=== PATIENT | female | born 1990 | race Caucasian/White ===

== ENCOUNTER 2016-10-19 20:15 | Observation (INO) | payer OTHER ==
[2016-08-02 09:05] VITALS: BP 108/68
[2016-10-19] MEDS ORDERED: IV RINGERS,LACTATED 1000ML 1,000 ML IV SCH (20:26)
[2016-10-19 20:51] LABS: BILIRUBIN,URINE NEGATIVE (NEG); GLUCOSE,URINE NEGATIVE (NEG); NITRITE,URINE NEGATIVE (NEG); PH,URINE 7.5; PROTEIN,URINE NEGATIVE (NEG-TRACE); UROBILINOGEN,URINE 0.2 mg/dL (0.2 mg/dL)
[2016-10-19 20:57] LABS: BACTERIA,URINE 0 /HPF (0-FEW); RBC,URINE 0 /HPF (0-2); SQUAMOUS EPITHELIAL CELL,UR FEW /LPF; WBC,URINE OCC /HPF (0-4)
[2016-10-19 21:00] LABS: BARBITURATES NEG (NEG); BENZODIAZEPINES NEG (NEG); CANNABINOIDS NEG (NEG); COCAINE NEG (NEG); METHADONE NEG (NEG); OPIATES NEG (NEG); PHENCYCLIDINE NEG (NEG)
[2016-10-19 21:06] LABS: ETHANOL, URINE NEG (NEG)
== END 2016-10-19 21:43 | disposition home or self-care (01) ==
LOC: 3 SO LND 20:15
PROVIDERS: ADMIT Obstetrics & Gynecology; ATTEND Obstetrics & Gynecology
DX: O42.92 Full-term premature rupture of membranes, unspecified as to length of time between rupture and onset of labor (principal); Z3A.38 38 weeks gestation of pregnancy
CPT/HCPCS: 81001; G0378; G0379; G0481

== ENCOUNTER 2016-10-22 18:46 | Observation (INO) | payer OTHER ==
[2016-08-02 09:05] VITALS: BP 108/68
[2016-10-22] MEDS ORDERED: IV RINGERS,LACTATED 1000ML 1,000 ML IV SCH (19:12)
[2016-10-22 19:23] LABS: BILIRUBIN,URINE NEGATIVE (NEG); GLUCOSE,URINE NEGATIVE (NEG); NITRITE,URINE NEGATIVE (NEG); PH,URINE 7.5; PROTEIN,URINE NEGATIVE (NEG-TRACE); UROBILINOGEN,URINE 0.2 mg/dL (0.2 mg/dL)
[2016-10-22 19:35] LABS: BACTERIA,URINE FEW /HPF (0-FEW); RBC,URINE 0 /HPF (0-2); SQUAMOUS EPITHELIAL CELL,UR FEW /LPF; WBC,URINE OCC /HPF (0-4)
== END 2016-10-22 23:30 | disposition home or self-care (01) ==
LOC: 3 SO LND 18:46
PROVIDERS: ADMIT Obstetrics & Gynecology; ATTEND Obstetrics & Gynecology
DX: O62.9 Abnormality of forces of labor, unspecified (principal); Z3A.38 38 weeks gestation of pregnancy
CPT/HCPCS: 81001; G0378; G0379

== ENCOUNTER 2016-10-25 15:39 | Observation (INO) | payer OTHER ==
[2016-08-02 09:05] VITALS: BP 108/68
== END 2016-10-25 18:35 | disposition home or self-care (01) ==
LOC: 3 SO LND 15:39
PROVIDERS: ADMIT Obstetrics & Gynecology; ATTEND Obstetrics & Gynecology
DX: O62.9 Abnormality of forces of labor, unspecified (principal); Z3A.36 36 weeks gestation of pregnancy
CPT/HCPCS: G0378; G0379

== ENCOUNTER 2016-11-01 21:45 | Inpatient (IN) | payer OTHER ==
[~2016-11-01] VITALS: Ht 154.9 cm; Wt 55.8 kg
[2016-11-01] MEDS ORDERED: HYDROXYZINE PAMOATE 25 MG CAPSULE PO ONE (23:30)
[2016-11-02] MEDS ORDERED: LIDOCAINE 1% PF 30 ML VIAL. INJ PRN (11:15)
[2016-11-02] MEDS ORDERED: 0.9 % SODIUM CHLORIDE 10 ML DISP.SYRIN. IV PRN (11:15)
[2016-11-02] MEDS ORDERED: TERBUTALINE 1 MG/ML VIAL. SQ PRN (11:15)
[2016-11-02] MEDS ORDERED: OXYTOCIN 30 UNIT/500 ML PREMIX 500 ML IV PRN ×2 (11:15)
[2016-11-02] MEDS ORDERED: IBUPROFEN 600 MG TABLET. PO PRN (11:15)
[2016-11-02] MEDS: IV RINGERS,LACTATED 1000ML 1,000 ML IV SCH ×2 (11:18→15:14)
[2016-11-02 11:42] LABS: HEMATOCRIT 34.9 % (36.0-47.0); HEMOGLOBIN 11.9 g/dL (12.0-15.5); RED BLOOD COUNT 3.85 x10^6/uL (3.50-5.40); RED CELL DISTRIBUTION WIDTH 13.3 % (11.5-14.5); WHITE BLOOD COUNT 17.1 x10^3/uL (4.0-11.0)
[2016-11-02] MEDS ORDERED: BUTORPHANOL 2 MG VIAL. IV PRN (19:00)
[2016-11-02] MEDS: FENTANYL PF 100 MCG/2 ML VIAL. IV PRN ×2 (19:08→23:18)
[2016-11-03] MEDS ORDERED: DIPHENHYDRAMINE HCL 25 MG CAPSULE PO PRN (01:45)
[2016-11-03] MEDS ORDERED: 0.9 % SODIUM CHLORIDE 10 ML DISP.SYRIN. IV PRN (01:45)
[2016-11-03] MEDS ORDERED: ACETAMINOPHEN 325 MG TABLET. PO PRN (01:45)
[2016-11-03] MEDS ORDERED: HYDROCORTISONE 1% TOPICAL OINTMENT 30GM TUBE. TP PRN (01:45)
[2016-11-03] MEDS ORDERED: HYDROCODONE/APAP 5/325MG TABLET. PO PRN (01:45)
[2016-11-03] MEDS ORDERED: MAG HYDROX/ALUMINUM HYD/SIMETH 30 ML ORAL.SUSP PO PRN (01:45)
[2016-11-03] MEDS ORDERED: ZOLPIDEM 5 MG TABLET. PO PRN (01:45)
[2016-11-03] MEDS ORDERED: OXYTOCIN 30 UNIT/500 ML PREMIX 500 ML IV PRN (01:45)
[2016-11-03] MEDS ORDERED: MAGNESIUM HYDROXIDE 2,400 MG/30 ML ORAL.SUSP. PO PRN (01:45)
[2016-11-03] MEDS ORDERED: BENZOCAINE 20% TOPICAL AEROSOL SPRAY 57GM CAN. TP PRN (01:45)
[2016-11-03] MEDS ORDERED: PHENYLEPH/MINERAL OIL/PETROLAT RECTAL OINTMENT 28GM TUBE. RC PRN (01:45)
[2016-11-03] MEDS ORDERED: SIMETHICONE 80 MG TAB.CHEW PO PRN (01:45)
[2016-11-03 05:14] VITALS: BP 117/71
[2016-11-03 06:11] VITALS: BP 108/59
[2016-11-03] MEDS ORDERED: FERROUS SULFATE 325 MG TABLET PO SCH (08:00)
[2016-11-03 09:52] VITALS: BP 110/64
[2016-11-03] MEDS ORDERED: FLU VACC QUAD 2016-17 (36MOS+)/PF 0.5 ML SYRINGE. VAX IM ONE (10:15)
[2016-11-03] MEDS ORDERED: DIPHTH,PERTUSS(ACELL),TET TOX 0.5 ML DISP.SYRIN. VAX IM ONE (10:15)
[2016-11-03] MEDS: IBUPROFEN 800 MG TABLET. PO SCH ×2 (14:07→21:59)
[2016-11-03 15:20] VITALS: BP 105/62
[2016-11-03 19:45] VITALS: BP 109/70
[2016-11-04 00:05] VITALS: BP 105/62
[2016-11-04 04:20] VITALS: BP 101/61
[2016-11-04] MEDS: IBUPROFEN 800 MG TABLET. PO SCH (07:33)
[2016-11-04 09:19] VITALS: BP 110/62
== END 2016-11-04 11:00 | disposition home or self-care (01) | DRG 775 ==
LOC: 3 SO LND 21:45 → OBSVTOIN 21:45 → 3 SO LND 11-03 04:53
PROVIDERS: ADMIT Specialist; ATTEND Specialist
PROC: 10E0XZZ Delivery of Products of Conception, External Approach (ICD-10-PCS; principal; 2016-11-04)
PROC: 3E0334Z Introduction of Serum, Toxoid and Vaccine into Peripheral Vein, Percutaneous Approach (ICD-10-PCS; 2016-11-04)
DX: O80 Encounter for full-term uncomplicated delivery (principal); Z37.0 Single live birth; Z3A.39 39 weeks gestation of pregnancy
CPT/HCPCS: 36415; 85014; 85027; 85461; 86593; 86850; 86900; 86901; 90715; G0378; J2590; J2791; J3010; J7120; Q0177

== ENCOUNTER → 2020-02-29 | Outpatient (CLI) | payer OTHER ==
[2020-02-29 10:34] LABS: BASO % 0 % (0-3); EOS # 0.1 x10^3/uL (0.0-0.7); EOS % 1 % (0-3); HEMATOCRIT 31.9 % (36.0-47.0); HEMOGLOBIN 11.3 g/dL (12.0-15.5); LYMPH # 1.7 x10^3/uL (1.0-4.8); LYMPH % 12 % (24-48); MEAN CORPUSCULAR HEMOGLOBIN 30 pg (25-35); MEAN CORPUSCULAR HGB CONC 36 g/dL (31-37); MEAN CORPUSCULAR VOLUME 84 fL (79-100); MONO # 1.1 x10^3/uL (0.0-1.1); MONO % 7 % (0-9); NEUT # 11.5 x10^3/uL (1.8-7.7); NEUT % 80 % (31-73); PLATELET COUNT 327 x10^3/uL (140-400); RED BLOOD COUNT 3.82 x10^6/uL (3.50-5.40); WHITE BLOOD COUNT 14.4 x10^3/uL (4.0-11.0)
== END | disposition home or self-care (01) ==
LOC: LAB 09:24
PROVIDERS: ATTEND Obstetrics & Gynecology
DX: O26.899 Other specified pregnancy related conditions, unspecified trimester (principal); Z67.11 Type A blood, Rh negative; Z3A.00 Weeks of gestation of pregnancy not specified
CPT/HCPCS: 36415; 82950; 85025; 86850; 86900; 86901; 96372; J2791

== ENCOUNTER → 2020-03-21 | Outpatient (CLI) | payer OTHER | LOC: LAB 10:52 | PROVIDERS: ATTEND Obstetrics & Gynecology | DX: O09.90 Supervision of high risk pregnancy, unspecified, unspecified trimester (principal); Z3A.00 Weeks of gestation of pregnancy not specified | CPT/HCPCS: 36415; 82947; 82950 ==

== ENCOUNTER 2020-05-04 17:43 | Observation (INO) | payer OTHER ==
[~2020-05-04] VITALS: Ht 154.9 cm; Wt 59.0 kg
[2020-05-04 18:22] LABS: BILIRUBIN,URINE NEGATIVE (NEG); CLARITY,URINE CLEAR; COLOR,URINE YELLOW; NITRITE,URINE NEGATIVE (NEG); PROTEIN,URINE 100 mg/dL (NEG-TRACE)
[2020-05-04 18:26] LABS: BACTERIA,URINE MODERATE /HPF (0-FEW); SQUAMOUS EPITHELIAL CELL,UR MANY /LPF
[2020-05-04 18:29] LABS: RBC,URINE 0 /HPF (0-2)
[2020-05-04] MEDS ORDERED: IV RINGERS,LACTATED 1000ML 1,000 ML IV SCH (18:30)
[2020-05-04] MEDS ORDERED: hydrOXYzine 25 MG TABLET PO PRN (20:00)
== END 2020-05-04 20:27 | disposition home or self-care (01) ==
LOC: 3 SO LND 17:43
PROVIDERS: ADMIT Obstetrics & Gynecology; ATTEND Obstetrics & Gynecology
DX: O62.9 Abnormality of forces of labor, unspecified (principal); Z3A.39 39 weeks gestation of pregnancy
CPT/HCPCS: 81001; 87086; G0378; G0379